=== PATIENT | male | born 1990 | race Caucasian/White ===

== ENCOUNTER 2019-05-09 11:26 | Emergency (ER) | payer OTHER ==
--- NOTE | 2019-05-09 12:13 | EDM.PDOC ---
ED HPI GENERAL MEDICAL PROBLEM - General Chief Complaint: Flank Pain Stated Complaint: LEFT SIDE PAIN Time Seen by Provider: 05/09/19 12:08 Source of Information: Reports: Patient History Limitations: Reports: No Limitations - History of Present Illness INITIAL COMMENTS - FREE TEXT/NARRATIVE: Patient presents to the ED by private vehicle with concerns of left sided flank pain. The patient describes the pain as 7/10, sharp, constant, without radiation. He stated the pain started approximately 3 hours ago. The patient states his last bowel movement was approximately 2 hours ago, it was formed, it did not effect his pain. He admits to 1 episode of emesis occurring earlier today while he was experiencing the pain. He denies diarrhea, fevers, constipation, blood in the stool, hematuria, painful urination. The patient denies any history of kidney stones. The patient was also recently diagnosed with a sinus infection at the clinic in [place]. The patient states that this seems to be improving. He is experiencing more nasal drainage and a more productive cough. Onset: Today Duration: Constant Location: Reports: Abdomen (left flank) Quality: Reports: Stabbing Severity: Moderate Improves with: Reports: None Worsens with: Reports: None Associated Symptoms: Reports: Nausea/Vomiting Left Abdominal Pain Score (Numeric/FACES): 7 - Related Data Allergies Allergy/AdvReac Type Severity Reaction Status Date / Time No Known Allergies Allergy Verified 05/09/19 11:37 Home Meds: Home Meds . [No Known Home Meds] 05/09/19 [History] Past Medical History HEENT History: Reports: Impaired Vision Cardiovascular History: Reports: None Respiratory History: Reports: None Gastrointestinal History: Reports: None Genitourinary History: Reports: None Musculoskeletal History: Reports: None Neurological History: Reports: None Psychiatric History: Reports: None Endocrine/Metabolic History: Reports: None Hematologic History: Reports: None Immunologic History: Reports: None Oncologic (Cancer) History: Reports: None Dermatologic History: Reports: None - Infectious Disease History Infectious Disease History: Reports: None - Past Surgical History Head Surgeries/Procedures: Reports: None Social & Family History - Family History Family Medical History: Noncontributory - Tobacco Use Smoking Status *Q: Never Smoker Second Hand Smoke Exposure: No - Caffeine Use Caffeine Use: Reports: Coffee - Recreational Drug Use Recreational Drug Use: No ED ROS GENERAL - Review of Systems Review Of Systems: See Below Constitutional: Denies: Fever, Chills, Decreased Appetite Respiratory: Reports: Cough. Denies: Shortness of Breath, Wheezing Cardiovascular: Denies: Chest Pain GI/Abdominal: Reports: Vomiting. Denies: Abdominal Pain, Bloody Stool, Constipation, Distension : Denies: Dysuria, Hematuria ED EXAM, RENAL/ - Physical Exam Exam: See Below Exam Limited By: No Limitations General Appearance: Alert, Mild Distress Ears: Normal External Exam, Normal Canal, Normal TMs Throat/Mouth: Normal Inspection, Normal Oropharynx Head: Atraumatic, Normocephalic Neck: Normal Inspection, Supple, Non-Tender Respiratory/Chest: No Respiratory Distress, Lungs Clear, Normal Breath Sounds, Chest Non-Tender Cardiovascular: Regular Rate, Rhythm, No Edema, No Murmur GI/Abdominal: Soft, Non-Tender, No Distention Back Exam: CVA Tenderness (L). No: CVA Tenderness (R) Neurological: Alert, Oriented Psychiatric: Normal Affect, Normal Mood Skin Exam: Warm, Intact, Diaphoretic Lymphatic: No Adenopathy Course - Vital Signs Last Recorded V/S: Last Vital Signs Temp 97.9 F 05/09/19 11:37 Pulse 90 05/09/19 11:37 Resp 20 05/09/19 11:37 BP 141/78 H 05/09/19 11:37 Pulse Ox 99 05/09/19 11:37 - Orders/Labs/Meds Orders: Active Orders 24 hr Category Date Time Status Peripheral IV Care [RC] . DIRECTED Care 05/09/19 12:45 Active Abdomen Pelvis wo Cont [CT] Urgent Exams 05/09/19 13:07 Taken URINALYSIS W/MICROSCOPIC [UA W/MICROSCOPIC] [URIN] Stat Lab 05/09/19 12:05 Ordered Sodium Chloride 0.9% [Normal Saline] 1,000 ml Med 05/09/19 13:00 Active IV ASDIRECTED Peripheral IV Insertion Adult [OM.PC] Routine Oth 05/09/19 12:45 Ordered Medication Orders Sodium Chloride (Normal Saline) 1,000 mls @ 999 mls/hr IV ASDIRECTED DANIEL Last Admin: 05/09/19 12:55 Dose: 999 mls/hr Labs: Laboratory Tests 05/09/19 05/09/19 Range/Units 12:27 12:27 WBC 13.3 H (5.0-10.0) 10^3/uL RBC 4.92 (4.6-6.2) 10^6/uL Hgb 14.7 (14.0-18.0) g/dL Hct 43.7 (40.0-54.0) % MCV 88.8 (80-100) fL MCH 29.9 (27.0-34.0) pg MCHC 33.6 (33.0-35.0) g/dL Plt Count 377 (150-450) 10^3/uL Neut % (Auto) 85.7 H (42.2-75.2) % Lymph % (Auto) 9.4 L (20.5-50.1) % [place] % (Auto) 4.1 (2-8) % Eos % (Auto) 0.5 L (1.0-3.0) % Baso % (Auto) 0.3 (0.0-1.0) % Sodium 143 (136-145) mmol/L Potassium 4.2 (3.5-5.1) mmol/L Chloride 104 (98-107) mmol/L Carbon Dioxide 29 (21-32) mmol/L Anion Gap 14.2 H (7-13) mEq/L BUN 20 H (7-18) mg/dL Creatinine 1.19 (0.70-1.30) mg/dL Est Cr Clr Drug Dosing 96.28 mL/min Estimated GFR (MDRD) > 60 BUN/Creatinine Ratio 16.8 (No establ ref range) Glucose 101 H (74-99) mg/dL Calcium 8.9 (8.5-10.1) mg/dL Total Bilirubin 0.3 (0.2-1.0) mg/dL AST 33 (15-37) U/L ALT 103 H (16-63) U/L Alkaline Phosphatase 58 (46-116) U/L Total Protein 8.6 H (6.4-8.2) g/dL Albumin 4.2 (3.4-5.0) g/dL Globulin 4.4 Albumin/Globulin Ratio 1.0 Meds: Medications Generic Name Dose Route Start Last Admin Trade Name Freq PRN Reason Stop Dose Admin Sodium Chloride 1,000 mls @ 999 mls/hr 05/09/19 13:00 05/09/19 12:55 Normal Saline IV 999 mls/hr ASDIRECTED DANIEL Administration Discontinued Medications Generic Name Dose Route Start Last Admin Trade Name Guillermo PRN Reason Stop Dose Admin Sodium Chloride 1,000 mls @ 999 mls/hr 05/09/19 12:49 05/09/19 14:12 Normal Saline IV 05/09/19 13:49 999 mls/hr .BOLUS ONE Administration Ketorolac Tromethamine 30 mg 05/09/19 14:03 05/09/19 14:13 Toradol IVPUSH 05/09/19 14:04 30 mg ONETIME ONE Administration Morphine Sulfate 2 mg 05/09/19 12:47 05/09/19 12:55 Morphine IVPUSH 05/09/19 12:48 2 mg ONETIME ONE Administration Morphine Sulfate 2 mg 05/09/19 13:45 05/09/19 13:51 Morphine IVPUSH 05/09/19 13:46 2 mg ONETIME ONE Administration Sodium Chloride 10 ml 05/09/19 12:45 Saline Flush FLUSH ASDIRECTED PRN Keep Vein Open Tamsulosin HCl 0.4 mg 05/09/19 14:03 05/09/19 14:12 Flomax PO 05/09/19 14:04 0.4 mg ONETIME ONE Administration - Radiology Interpretation Free Text/Narrative:: CT abdomen pelvis without contrast reveals 4 mm stone in the left ureter. Departure - Departure Time of Disposition: 15:04 Disposition: Home, Self-Care 01 Condition: Good Clinical Impression: Kidney stone on left side - Discharge Information *PRESCRIPTION DRUG MONITORING PROGRAM REVIEWED*: Not Applicable *COPY OF PRESCRIPTION DRUG MONITORING REPORT IN PATIENT DAVE: Not Applicable Instructions: Kidney Stones, [id number] Forms: ED Department Discharge Additional Instructions: Rx: Toradol, take this as directed Rx: Callao, take this as needed Rx: Flomax, take this as directed Return to the ED if develop severe pain, uncontrolled nausea/vomiting, worsening of condition. Sepsis Event Note - Evaluation Sepsis Screening Result: No Definite Risk - Focused Exam Vital Signs: Vital Signs Temp Pulse Resp BP Pulse Ox 05/09/19 11:37 97.9 F 90 20 141/78 H 99 Date Exam was Performed: 05/09/19 Time Exam was Performed: 15:04 - My Orders Last 24 Hours: My Active Orders 05/09/19 12:05 URINALYSIS W/MICROSCOPIC [UA W/MICROSCOPIC] [URIN] Stat 05/09/19 12:45 Peripheral IV Care [RC] . DIRECTED Peripheral IV Insertion Adult [OM.PC] Routine 05/09/19 13:00 Sodium Chloride 0.9% [Normal Saline] 1,000 ml IV ASDIRECTED 05/09/19 13:07 Abdomen Pelvis wo Cont [CT] Urgent - Assessment/Plan Last 24 Hours: My Active Orders 05/09/19 12:05 URINALYSIS W/MICROSCOPIC [UA W/MICROSCOPIC] [URIN] Stat 05/09/19 12:45 Peripheral IV Care [RC] . DIRECTED Peripheral IV Insertion Adult [OM.PC] Routine 05/09/19 13:00 Sodium Chloride 0.9% [Normal Saline] 1,000 ml IV ASDIRECTED 05/09/19 13:07 Abdomen Pelvis wo Cont [CT] Urgent
[2019-05-09] MEDS ORDERED: Sodium Chloride 0.9% 10 ML Syringe FLUSH PRN (12:45)
[2019-05-09] MEDS ORDERED: Morphine 2 MG/ML SYRINGE IVPUSH ONE ×2 (12:47→13:45)
[2019-05-09] MEDS ORDERED: Sodium Chloride 0.9% 1,000 ML IV ONE (12:49)
[2019-05-09 12:51] LABS: ANION GAP 14.2 mEq/L (7-13); CHLORIDE,CL 104 mmol/L (98-107); SODIUM,NA 143 mmol/L (136-145)
[2019-05-09] MEDS ORDERED: Sodium Chloride 0.9% 1,000 ML IV SCH (13:00)
[2019-05-09] MEDS ORDERED: Tamsulosin 0.4 MG Cap.ER PO ONE (14:03)
[2019-05-09] MEDS ORDERED: Ketorolac 30 MG/ML SDV IVPUSH ONE (14:03)
== END 2019-05-09 15:21 | disposition home or self-care (01) ==
LOC: DL.ED 11:26
DX: N13.2 Hydronephrosis with renal and ureteral calculous obstruction (principal)
CPT/HCPCS: 36415; 74176; 80053; 85025; 96361; 96374; 96375; 96376; 99284; A9270; J1885; J2270; J7030

== ENCOUNTER 2019-05-28 11:59 | Emergency (ER) | payer OTHER ==
--- NOTE | 2019-05-28 12:21 | EDM.PDOC ---
ED HPI GENERAL MEDICAL PROBLEM - General Chief Complaint: Genitourinary Problem Stated Complaint: KIDNEY STONE Time Seen by Provider: 05/28/19 12:19 Source of Information: Reports: Patient, Old Records, RN, RN Notes Reviewed History Limitations: Reports: No Limitations - History of Present Illness INITIAL COMMENTS - FREE TEXT/NARRATIVE: Pt presents to ER by POV with c/o that he is unable to pass his urine. He states around 0600HRS this morning he voided normally with clear urine for the last time. He says he can strain hard and pass only a small amount of urine but "it takes a lot of work to get that out". He admits to having pain to left abdomen and left flank. Took a Hydrocodone at 0800HRS this morning without relief. He is out of the Toradol and Tamsulosin the was prescribed 05/09/19. Pt was seen here on 05/09/19 and found to have a 4mm left ureter calculus. He followed up with his PCP, but was not referred to urology due to having no further symptoms. Currently he feels his bladder is full and cannot empty it. Admits to urinary urgency and frequency. Denies fever, chills, N/V, or hematuria. Pt rates his pain 7-8/10. Onset: Today Duration: Constant Location: Reports: Pelvis (Urinary) Quality: Reports: Ache, Pressure Severity: Severe Improves with: Reports: None Worsens with: Reports: None Associated Symptoms: Reports: No Other Symptoms Treatments CHIEF MEDICAL OFFICER: Reports: Other Medication(s) - Related Data Allergies Allergy/AdvReac Type Severity Reaction Status Date / Time No Known Allergies Allergy Verified 05/28/19 12:06 Home Meds: Home Meds Hydrocodone/Acetaminophen [Hydrocodon-Acetaminophn 10-325] 1 tab PO Q6H PRN 03/17 [History] Past Medical History HEENT History: Reports: Impaired Vision Cardiovascular History: Reports: None Respiratory History: Reports: None Gastrointestinal History: Reports: None Genitourinary History: Reports: Renal Calculus Musculoskeletal History: Reports: None Neurological History: Reports: None Psychiatric History: Reports: None Endocrine/Metabolic History: Reports: None Hematologic History: Reports: None Immunologic History: Reports: None Oncologic (Cancer) History: Reports: None Dermatologic History: Reports: None - Infectious Disease History Infectious Disease History: Reports: None - Past Surgical History Head Surgeries/Procedures: Reports: None Social & Family History - Family History Family Medical History: Noncontributory - Caffeine Use Caffeine Use: Reports: Coffee - Living Situation & Occupation Living situation: Reports: Occupation: Employed ED ROS GENERAL - Review of Systems Review Of Systems: Comprehensive ROS is negative, except as noted in HPI. ED EXAM, RENAL/ - Physical Exam Exam: See Below Exam Limited By: No Limitations General Appearance: Alert, WD/WN, No Apparent Distress, Obese Respiratory/Chest: No Respiratory Distress Cardiovascular: Regular Rate, Rhythm GI/Abdominal: Normal Bowel Sounds, Soft, Non-Tender, No Distention, Other ( Benign obese abdomen). No: Guarding, Rigid, Rebound Back Exam: Normal Inspection, Full Range of Motion. No: CVA Tenderness (L), CVA Tenderness (R) Extremities: Normal Inspection Neurological: Alert, Oriented, No Motor/Sensory Deficits Psychiatric: Normal Mood Skin Exam: Warm, Dry, Intact, Normal Color Course - Vital Signs Last Recorded V/S: Last Vital Signs Temp 97.6 F 05/28/19 12:04 Pulse 88 05/28/19 12:04 Resp 18 05/28/19 12:04 BP 144/79 H 05/28/19 12:04 Pulse Ox 100 05/28/19 12:04 - Orders/Labs/Meds Orders: Active Orders 24 hr Category Date Time Status Bladder Scan [RC] ASDIRECTED Care 05/28/19 12:21 Active Urinary Catheter Assessment [RC] ASDIRECTED Care 05/28/19 12:27 Active Urinary Catheter Insertion [Insert Urinary Catheter] [ Care 05/28/19 12:25 Ordered OM.PC] Stat UA W/MICROSCOPIC [URIN] Stat Lab 05/28/19 12:36 Results Labs: Laboratory Tests 05/28/19 Range/Units 12:36 Urine Color Yellow (YELLOW) Urine Appearance Clear (CLEAR) Urine pH 6.0 (5.0-9.0) Ur Specific [place] >= 1.030 (1.005-1.030) Urine Protein Negative (NEGATIVE) Urine Glucose (UA) Negative (NEGATIVE) Urine Ketones Negative (NEGATIVE) Urine Occult Blood Moderate H (NEGATIVE) Urine Nitrite Negative (NEGATIVE) Urine Bilirubin Negative (NEGATIVE) Urine Urobilinogen 0.2 (0.2-1.0) mg/dL Ur Leukocyte Esterase Negative (NEGATIVE) Meds: Medications Discontinued Medications Generic Name Dose Route Start Last Admin Trade Name Guillermo PRN Reason Stop Dose Admin Hydrocodone Bitart/Acetaminophen 1 tab 05/28/19 12:27 05/28/19 12:43 [place] 325-10 Mg PO 05/28/19 12:28 1 tab ONETIME ONE Administration Tamsulosin HCl 0.4 mg 05/28/19 12:27 05/28/19 12:44 Flomax PO 05/28/19 12:28 0.4 mg ONETIME ONE Administration - Re-Assessments/Exams Free Text/Narrative Re-Assessment/Exam: 05/28/19 12:52 300cc urine output with straight cath. per RN. Pt had a single 4mm left ureter stone by CT on 05/09/19. I do not see any indication to repeat imaging at this time. Pt has been instructed to strain his urine. Rx: Flomax 0.4mg, Toradol 10mg , and Hydrocodone APAP 10mg/325mg. Pt is to return to the ER if he is not able pass urine in the next 4 to 6 hours. Departure - Departure Time of Disposition: 13:01 Disposition: Home, Self-Care 01 Condition: Good Clinical Impression: Kidney stone, Urinary (tract) obstruction - Discharge Information *PRESCRIPTION DRUG MONITORING PROGRAM REVIEWED*: Not Applicable *COPY OF PRESCRIPTION DRUG MONITORING REPORT IN PATIENT DAVE: Not Applicable Instructions: Renal Colic, [id number], Kidney Stones, [id number], Acute Urinary Retention, Male, [id number] Forms: ED Department Discharge Additional Instructions: Rx: Flomax 0.4mg Rx: Toradol 10mg Rx: Hydrocodone APAP 10mg/325mg *Do not drive or work while taking this medication. Drink plenty of water. Strain all urine. You may see some blood or clots in your urine. Return to ER if you are unable to pass urine in the next 4 to 6 hours. Return to ER if you develop fever or severe/uncontrolled pain. Follow up in clinic in 2 days for recheck, and for urology referral if needed. Sepsis Event Note - Evaluation Sepsis Screening Result: No Definite Risk - Focused Exam Vital Signs: Vital Signs Temp Pulse Resp BP Pulse Ox 05/28/19 12:04 97.6 F 88 18 144/79 H 100 Date Exam was Performed: 05/28/19 Time Exam was Performed: 13:01 - My Orders Last 24 Hours: My Active Orders 05/28/19 12:21 Bladder Scan [RC] ASDIRECTED 05/28/19 12:25 Urinary Catheter Insertion [Insert Urinary Catheter] [OM.PC] Stat 05/28/19 12:27 Urinary Catheter Assessment [RC] ASDIRECTED 05/28/19 12:36 UA W/MICROSCOPIC [URIN] Stat - Assessment/Plan Last 24 Hours: My Active Orders 05/28/19 12:21 Bladder Scan [RC] ASDIRECTED 05/28/19 12:25 Urinary Catheter Insertion [Insert Urinary Catheter] [OM.PC] Stat 05/28/19 12:27 Urinary Catheter Assessment [RC] ASDIRECTED 05/28/19 12:36 UA W/MICROSCOPIC [URIN] Stat
[2019-05-28] MEDS ORDERED: Tamsulosin 0.4 MG Cap.ER PO ONE (12:27)
[2019-05-28] MEDS ORDERED: Acetaminophen/HYDROcodone 325-10 MG Tab PO ONE (12:27)
== END 2019-05-28 13:14 | disposition home or self-care (01) ==
LOC: DL.ED 11:59
DX: N20.0 Calculus of kidney (principal); N13.9 Obstructive and reflux uropathy, unspecified; Z87.442 Personal history of urinary calculi
CPT/HCPCS: 51798; 81001; 99284; A9270; 51702

== ENCOUNTER 2019-06-28 10:38 | Emergency (ER) | payer OTHER ==
[2019-06-28] MEDS ORDERED: Ketorolac 30 MG/ML SDV IM ONE (10:55)
[2019-06-28] MEDS ORDERED: Tamsulosin 0.4 MG Cap.ER PO ONE (10:55)
[2019-06-28] MEDS ORDERED: Ondansetron 4 MG Tab.DIS PO ONE (10:56)
--- NOTE | 2019-06-28 11:21 | EDM.PDOC ---
Scribed by Corinna Morgan 06/28/19 1051 for Tim Khan MD ED HPI GENERAL MEDICAL PROBLEM - General Chief Complaint: Genitourinary Problem Stated Complaint: kidney stone Time Seen by Provider: 06/28/19 10:44 Source of Information: Reports: Patient, Old Records, RN, RN Notes Reviewed History Limitations: Reports: No Limitations - History of Present Illness INITIAL COMMENTS - FREE TEXT/NARRATIVE: Pt presents to ER with c/o left flank pain that began yesterday. Initially the pain was intermittent. Today the pain has been constant for the past several hours. Last week he admits to seeing a few harpreet of blood and a few thin strands of clots in his urine, but did not have pain at that time. He has Hx of 4mm left ureter calculus in 04/2019 and was seen on 05/28/19 with left flank pain and urinary retention. He had f/u with his PCP but was not referred to urology. He denies fever or chills, N/V/D/C, or gross hematuria. He admits to acute urinary retention, having last voided 2 hours ago. Pt rates the pain 10. Nothing alleviates or aggravates the pain. Onset: Gradual Duration: Waxing/Waning Location: Reports: Other (Left flank) Quality: Reports: Ache Severity: Moderate Improves with: Reports: None Worsens with: Reports: None Associated Symptoms: Reports: No Other Symptoms Left Flank Pain Score (Numeric/FACES): 3 - Related Data Allergies Allergy/AdvReac Type Severity Reaction Status Date / Time No Known Allergies Allergy Verified 06/28/19 10:45 Home Meds: Home Meds Hydrocodone/Acetaminophen [Hydrocodone-Acetamin 10-325 mg] 1 tab PO Q6H PRN 03/17 [History] Past Medical History HEENT History: Reports: Impaired Vision Cardiovascular History: Reports: None Respiratory History: Reports: None Gastrointestinal History: Reports: None Genitourinary History: Reports: Renal Calculus Musculoskeletal History: Reports: None Neurological History: Reports: None Psychiatric History: Reports: None Endocrine/Metabolic History: Reports: None Hematologic History: Reports: None Immunologic History: Reports: None Oncologic (Cancer) History: Reports: None Dermatologic History: Reports: None - Infectious Disease History Infectious Disease History: Reports: None - Past Surgical History Head Surgeries/Procedures: Reports: None Social & Family History - Family History Family Medical History: Noncontributory - Caffeine Use Caffeine Use: Reports: Coffee - Living Situation & Occupation Living situation: Reports: Occupation: Employed ED ROS GENERAL - Review of Systems Review Of Systems: Comprehensive ROS is negative, except as noted in HPI. ED EXAM, RENAL/ - Physical Exam Exam: See Below Exam Limited By: No Limitations General Appearance: Alert, WD/WN, No Apparent Distress, Obese Throat/Mouth: Normal Voice, No Airway Compromise Head: Atraumatic, Normocephalic Respiratory/Chest: No Respiratory Distress, Lungs Clear Cardiovascular: Regular Rate, Rhythm, No Edema GI/Abdominal: Normal Bowel Sounds, Soft, No Organomegaly, No Distention, No Abnormal Bruit, No Mass, Other (Benign obese abdomen, mild suprapubic tenderness.) (Male) Exam: Deferred Rectal (Males) Exam: Deferred Back Exam: Full Range of Motion. No: CVA Tenderness (L) (No pain to palpation or percussion over the area of left flank pain.), CVA Tenderness (R), Vertebral Tenderness Extremities: Normal Inspection Neurological: Alert, Oriented, Normal Gait, No Motor/Sensory Deficits Psychiatric: Normal Affect, Normal Mood Skin Exam: Warm, Dry, Intact, Normal Color, No Rash Course - Vital Signs Last Recorded V/S: Last Vital Signs Temp 97.3 F 06/28/19 10:45 Pulse 106 H 06/28/19 10:45 Resp 16 06/28/19 10:45 BP 151/75 H 06/28/19 10:45 Pulse Ox 100 06/28/19 10:45 - Orders/Labs/Meds Orders: Active Orders 24 hr Category Date Time Status Bladder Scan [RC] ASDIRECTED Care 06/28/19 10:55 Active Abdomen Pelvis wo Cont [CT] Stat Exams 06/28/19 10:56 Taken UA RFX LOIDA AND CULT IF INDIC [URIN] Stat Lab 06/28/19 10:41 Ordered Meds: Medications Discontinued Medications Generic Name Dose Route Start Last Admin Trade Name Freq PRN Reason Stop Dose Admin Ketorolac Tromethamine 60 mg 06/28/19 10:55 06/28/19 11:01 Toradol IM 06/28/19 10:56 60 mg ONETIME ONE Administration Ondansetron HCl 4 mg 06/28/19 10:56 06/28/19 11:01 Zofran Odt PO 06/28/19 10:57 4 mg ONETIME ONE Administration Tamsulosin HCl 0.4 mg 06/28/19 10:55 06/28/19 11:01 Flomax PO 06/28/19 10:56 0.4 mg ONETIME ONE Administration - Radiology Interpretation Free Text/Narrative:: CT Abd/Pelvis: 4mm left distal ureteral calculus near the UVJ, see Rad. report. - Re-Assessments/Exams Free Text/Narrative Re-Assessment/Exam: 06/28/19 10:59 Bladder scan: 23cc (near empty bladder with symptoms of urinary urgency). Departure - Departure Time of Disposition: 11:19 Disposition: Home, Self-Care 01 Condition: Good Clinical Impression: Renal colic on left side, Kidney stone on left side - Discharge Information *PRESCRIPTION DRUG MONITORING PROGRAM REVIEWED*: No *COPY OF PRESCRIPTION DRUG MONITORING REPORT IN PATIENT DAVE: No Instructions: Kidney Stones, [id number], Renal Colic, [id number] Forms: ED Department Discharge Additional Instructions: Rx: Flomax 0.4mg Rx: Hydrocodone APAP 10mg/325mg *Do not drive or work while under the influence of this medication. Rx: Zofran 4mg Drink plenty of water. Follow up in clinic this coming week for recheck, and referral to urology if indicated. Sepsis Event Note - Focused Exam Vital Signs: Vital Signs Temp Pulse Resp BP Pulse Ox 06/28/19 10:45 97.3 F 106 H 16 151/75 H 100 Date Exam was Performed: 06/28/19 Time Exam was Performed: 11:18 - My Orders Last 24 Hours: My Active Orders 06/28/19 10:41 UA RFX LOIDA AND CULT IF INDIC [URIN] Stat 06/28/19 10:55 Bladder Scan [RC] ASDIRECTED 06/28/19 10:56 Abdomen Pelvis wo Cont [CT] Stat - Assessment/Plan Last 24 Hours: My Active Orders 06/28/19 10:41 UA RFX LOIDA AND CULT IF INDIC [URIN] Stat 06/28/19 10:55 Bladder Scan [RC] ASDIRECTED 06/28/19 10:56 Abdomen Pelvis wo Cont [CT] Stat I have read and agree with the documentation that has been completed regarding this visit. By signing this record, I attest that the documentation was completed in my physical presence and is an accurate record of the encounter.
--- NOTE | 2019-06-28 11:41 | CT ---
EXAMINATION: Abdomen Pelvis wo Cont SEX: Male AGE: 29 years CLINICAL HISTORY: 29-year-old male with history of "renal stones" and now LEFT FLANK PAIN who was reported on CT scan 09 May 2019 to have "hydronephrosis and perinephric stranding associated with 4 mm calculus located mid left ureter (L3-4 level)". Reevaluate please. Scan technique: Volume acquisition of data emergency unenhanced CT scan (stone study) abdomen and pelvis (kidneys/ureters/bladder) this patient while lying supine on the Siemens multislice scanner [place], [place]. All data archived in the PACS system for storage, reformatting axial/sagittal/coronal planes and study. Interpretation: Abnormal. 1. *Tiny (4 mm) calculus has moved down into the distal left ureter since 08 May exam and now appears to be "lodged" at the bladder trigone, on the left. Note: Ipsilateral pyelocaliectasis and left ureterectasis. 2. No sign of other renal calculus (nephrolithiasis) or signs of obstructive uropathy on the right. No other intraluminal urinary bladder stones. 3. Gallbladder, unenhanced liver, stomach, spleen, pancreas, and adrenal glands unremarkable. 4. Normal caliber aortoiliac vessels. Lumbar spine unremarkable. Lung bases clear. 5. No abdominal or pelvic mass lesion and no signs of inflammatory "dirty" peritoneal fat, mesenteric/retroperitoneal lymphadenopathy, chemical bowel obstruction ascites or free intraperitoneal air. No ventral wall or inguinal hernias. CONCLUSION: Obstructing tiny distal left URETERAL CALCULUS. (definite stone movement but persistent signs of obstructive uropathy when compared to [address] exam)
== END 2019-06-28 11:24 | disposition home or self-care (01) ==
LOC: DL.ED 10:38
DX: N20.2 Calculus of kidney with calculus of ureter (principal)
CPT/HCPCS: 51798; 74176; 96372; 99284-25; A9270-GY; J1885

== ENCOUNTER 2024-09-02 04:54 | Emergency (ER) | payer OTHER ==
[2024-09-02] MEDS ORDERED: Sodium Chloride 0.9% 10 ML Syringe FLUSH PRN (05:02)
[2024-09-02] MEDS: Ketorolac 30 MG/ML SDV IVPUSH ONE (05:34)
[2024-09-02 05:40] LABS: BASOPHILS PERCENT AUTO 0.5 % (0.0-1.0); EOSINOPHILS PERCENT AUTO 1.6 % (1.0-3.0); LYMPHOCYTES PERCENT AUTO 24.5 % (20.5-50.1); MONOCYTES PERCENT AUTO 6.5 % (2-8); NEUTROPHILS PERCENT AUTO 66.9 % (42.2-75.2); PLATELET COUNT,PLT 324 10^3/uL (150-450); RED BLOOD CELL COUNT 4.96 10^6/uL (4.6-6.2); WHITE BLOOD CELL COUNT,WBC 8.9 10^3/uL (5.0-10.0)
[2024-09-02 06:03] LABS: A/G RATIO 0.9; ALANINE AMINOTRANSFERASE,ALT 43.0 U/L (16-63); ASPARTATE AMNIOTRANSFERASE,AST 16.0 U/L (15-37); BILIRUBIN TOTAL 0.5 mg/dL (0.2-1.0); BLOOD UREA NITROGEN,BUN 14.0 mg/dL (7-18); CARBON DIOXIDE,CO2 24.0 mmol/L (21-32); CHLORIDE,CL 107.0 mmol/L (98-107); CREATININE 0.97 mg/dL (0.70-1.30); EST CRCL DRUG DOSING (CG) 108.32 mL/min; GLUCOSE RANDOM 94.0 mg/dL (70-99); POTASSIUM,K 4.0 mmol/L (3.5-5.1); PROTEIN TOTAL,TP 7.9 g/dL (6.4-8.2); SODIUM,NA 142.0 mmol/L (136-145)
[2024-09-02 06:06] LABS: ESTIMATED GFR 106.0 mL/min (>=60)
[2024-09-02 06:07] LABS: LACTIC ACID 1.6 mmol/L (0.4-2.0)
[2024-09-02 08:06] LABS: APPEARANCE,URINE CLEAR (CLEAR); GLUCOSE,URINE NEGATIVE (NEGATIVE); OCCULT BLOOD,URINE SMALL (NEGATIVE)
[2024-09-02] MEDS: Ondansetron 4 MG/2 ML SDV IVPUSH ONE (08:08)
[2024-09-02 08:18] LABS: EPITHELIAL CELLS,URINE RARE /HPF (NOT SEEN)
== END 2024-09-02 08:50 | disposition home or self-care (01) ==
LOC: DL.ED 04:54
DX: N20.0 Calculus of kidney (principal); Z79.899 Other long term (current) drug therapy
CPT/HCPCS: 36415; 74176; 80053; 81001; 83605; 85025; 96374; 99284; J1885; J7030